=== PATIENT | female | born 2000 | race Asian ===

== ENCOUNTER 2024-08-08 22:31 | Emergency (ER) | payer OTHER ==
[~2024-08-08] VITALS: Ht 154.9 cm; Wt 46.2 kg
[2024-08-08 23:45] LABS: BASO % 0.5 % (0.0-1.0); EOS # 0.1 10^3/uL (0.0-0.5); EOS % 0.6 % (0.0-3.0); HEMATOCRIT 36.9 % (36.0-47.0); HEMOGLOBIN 13.3 g/dl (12.0-15.5); LYMPH # 2.4 10^3/uL (1.5-5.0); LYMPH % 28.7 % (24.0-44.0); MEAN CORPUSCULAR HEMOGLOBIN 30.7 pg (27.0-33.0); MEAN CORPUSCULAR VOLUME 85.2 fl (80.0-96.0); MONO # 0.5 10^3/uL (0.0-0.8); MONO % 6.1 % (2.0-8.0); NEUTROPHILS # 5.4 10^3/uL (1.5-8.5); NEUTROPHILS % 63.9 % (36.0-66.0); PLATELET COUNT, AUTOMATED 345 10^3/uL (150-450); RED BLOOD COUNT 4.33 10^6/uL (4.00-5.40); WHITE BLOOD COUNT 8.4 10^3/uL (4.0-10.0)
[2024-08-09 00:09] LABS: LIPASE 29 U/L (12-53)
[2024-08-09 00:12] LABS: ALBUMIN 4.4 G/DL (3.2-5.2); ALKALINE PHOSPHATASE 57 U/L (46-116); ALT/SGPT 111 U/L (7.0-40); AST/SGOT 35 U/L (<34); BILIRUBIN,DIRECT 0.3 MG/DL (<0.4); BILIRUBIN,TOTAL 0.8 MG/DL (0.3-1.2); BLOOD UREA NITROGEN 9 MG/DL (9-23); CALCIUM LEVEL 10.4 MG/DL (8.5-10.1); CARBON DIOXIDE LEVEL 20 MMOL/L (20-31); CHLORIDE LEVEL 108 MMOL/L (98-107); CREATININE FOR GFR 0.48 MG/DL (0.55-1.30); GLOMERULAR FILTRATION RATE > 60.0 (>60); GLUCOSE, FASTING 93 MG/DL (60-100); POTASSIUM SERUM 3.4 MMOL/L (3.5-5.1); SODIUM LEVEL 139 MMOL/L (136-145); TOTAL PROTEIN 8.7 G/DL (5.7-8.2)
[2024-08-09 00:50] LABS: HCG, SERUM QUANTITATIVE 180986.3 MIU/ML (<4.2)
[2024-08-09 03:44] LABS: APPEARANCE, URINE HAZY (CLEAR); BACTERIA, URINE AUTO NEGATIVE (NEGATIVE); BILIRUBIN, URINE AUTO 1+ (NEGATIVE); BLOOD, URINE BLOOD NEGATIVE (NEGATIVE); COLOR, URINE AMBER (YELLOW); GLUCOSE, URINE (UA) AUTO NEGATIVE (NEGATIVE); KETONE, URINE AUTO 2+ mg/dL (NEGATIVE); LEUKOCYTE ESTERASE, URINE AUTO NEGATIVE (NEGATIVE); MUCUS, URINE LARGE (NEGATIVE); NITRITE, URINE AUTO NEGATIVE (NEGATIVE); PROTEIN, URINE AUTO 2+ mg/dL (NEGATIVE); RBC, URINE AUTO 5 /HPF (0-3); SPECIFIC GRAVITY URINE AUTO 1.031 (1.002-1.035); SQUAMOUS EPITHELIAL CELL UR AU 2 /HPF (0-6); WBC, URINE AUTO 13 /HPF (0-3)
[2024-08-09] MEDS: NS 1,000 ML IV ONE (04:15)
[2024-08-09] MEDS: ONDANSETRON 4MG 2ML VIAL IV ONE (04:33)
[2024-08-09 06:00] VITALS: TEMP 98
[2024-08-09] MEDS ORDERED: ONDA-282 PO (06:43)
[2024-08-09] MEDS ORDERED: PREN1CHW6 PO (06:43)
[2024-08-09 07:00] VITALS: BP 104/57; O2SAT 99
== END 2024-08-09 07:23 | disposition home or self-care (01) ==
LOC: M ED 22:31
DX: O21.1 Hyperemesis gravidarum with metabolic disturbance (principal); Z3A.10 10 weeks gestation of pregnancy; F17.200 Nicotine dependence, unspecified, uncomplicated; Z79.83 Long term (current) use of bisphosphonates; Z79.899 Other long term (current) drug therapy
CPT/HCPCS: 71045; 76801; 80048; 80076; 81001; 83690; 84702; 85025; 87086; 87486; 87581; 87633; 87798; 96361; 96374; 99284; J2405

== ENCOUNTER → 2024-09-25 | Outpatient (CLI) | payer OTHER ==
[~2024-09-25] MED LIST: ONDA-282 PO; PREN1CHW6 PO
== END ==
LOC: M PLALAB 15:30
PROVIDERS: ATTEND Nurse Practitioner Family
DX: Z34.02 Encounter for supervision of normal first pregnancy, second trimester (principal); Z3A.00 Weeks of gestation of pregnancy not specified

== ENCOUNTER → 2024-10-30 | Outpatient (CLI) | payer OTHER ==
[2024-10-30 19:50] LABS: HEMATOCRIT 31.4 % (36.0-47.0); HEMOGLOBIN 10.3 g/dl (12.0-15.5); MEAN CORPUSCULAR HEMOGLOBIN 30.8 pg (27.0-33.0); MEAN CORPUSCULAR HGB CONC 32.8 g/dl (32.0-36.5); PLATELET COUNT, AUTOMATED 269 10^3/uL (150-450); RED BLOOD COUNT 3.34 10^6/uL (4.00-5.40); WHITE BLOOD COUNT 10.5 10^3/uL (4.0-10.0)
[2024-10-30 20:57] LABS: HIV 1&2 SCREEN NEGATIVE (NEGATIVE)
[2024-10-30 21:06] LABS: HEPATITIS C VIRUS ABY INDEX 0.02 INDEX (<0.8)
== END ==
LOC: M PLALAB 16:01
PROVIDERS: ATTEND Nurse Practitioner Family
DX: Z34.02 Encounter for supervision of normal first pregnancy, second trimester (principal)

== ENCOUNTER → 2024-12-21 | Outpatient (CLI) | payer OTHER | LOC: M RAD 08:23 | PROVIDERS: ATTEND Nurse Practitioner Family | DX: Z34.03 Encounter for supervision of normal first pregnancy, third trimester (principal); Z3A.29 29 weeks gestation of pregnancy ==

== ENCOUNTER → 2024-12-25 | Outpatient (CLI) | payer OTHER ==
[2024-12-25 11:43] LABS: HEMATOCRIT 30.6 % (36.0-47.0); MEAN CORPUSCULAR HEMOGLOBIN 28.6 pg (27.0-33.0); MEAN CORPUSCULAR HGB CONC 32.7 g/dl (32.0-36.5); MEAN CORPUSCULAR VOLUME 87.4 fl (80.0-96.0); PLATELET COUNT, AUTOMATED 271 10^3/uL (150-450); WHITE BLOOD COUNT 9.4 10^3/uL (4.0-10.0)
[2024-12-25 12:10] LABS: GLUCOSE CHALLENGE TEST 1 HOUR 146 MG/DL (LESS THAN 140)
[2024-12-25 12:39] LABS: HIV 1&2 SCREEN NEGATIVE (NEGATIVE)
[2024-12-25 12:46] LABS: GC DNA AMPLIFICATION NEGATIVE (NEGATIVE)
[2024-12-25 12:47] LABS: HEPATITIS C VIRUS ABY INDEX 0.16 INDEX (<0.8)
== END ==
LOC: M PLALAB 07:34
PROVIDERS: ATTEND Specialist
DX: Z34.02 Encounter for supervision of normal first pregnancy, second trimester (principal)

== ENCOUNTER → 2024-12-31 | Outpatient (CLI) | payer OTHER | LOC: M LAB 08:08 | PROVIDERS: ATTEND Nurse Practitioner Family | DX: R73.02 Impaired glucose tolerance (oral) (principal) ==

== ENCOUNTER → 2025-01-19 | Outpatient (CLI) | payer OTHER | LOC: M RAD 06:49 | PROVIDERS: ATTEND Nurse Practitioner Family | DX: O24.410 Gestational diabetes mellitus in pregnancy, diet controlled (principal) ==

== ENCOUNTER → 2025-01-27 | Outpatient (CLI) | payer OTHER ==
[2025-01-27 11:30] LABS: HEMATOCRIT 36.7 % (36.0-47.0); MEAN CORPUSCULAR HEMOGLOBIN 29.1 pg (27.0-33.0); MEAN CORPUSCULAR HGB CONC 32.7 g/dl (32.0-36.5); MEAN CORPUSCULAR VOLUME 89.1 fl (80.0-96.0); PLATELET COUNT, AUTOMATED 257 10^3/uL (150-450); RED BLOOD COUNT 4.12 10^6/uL (4.00-5.40); WHITE BLOOD COUNT 9.1 10^3/uL (4.0-10.0)
== END ==
LOC: M PLALAB 07:41
PROVIDERS: ATTEND Nurse Practitioner Family
DX: D50.9 Iron deficiency anemia, unspecified (principal)

== ENCOUNTER 2025-02-02 03:59 | Emergency (ER) | payer OTHER ==
[2025-02-02] MEDS ORDERED: FERR325T3 PO (04:53)
== END 2025-02-02 04:00 | disposition admitted as inpatient to this hospital (09) ==
LOC: M ED 03:59
DX: Z53.21 Procedure and treatment not carried out due to patient leaving prior to being seen by health care provider (principal)

== ENCOUNTER 2025-02-02 04:08 | Inpatient (IN) | payer OTHER ==
[~2025-02-02] VITALS: Ht 154.9 cm; Wt 64.0 kg
[2025-02-02] VITALS (34 sets, daily range): BP systolic 100–158; BP diastolic 52–87; O2SAT 98–99
[2025-02-02] MEDS: ONDANSETRON 4MG 2ML VIAL IV ONE (04:35)
[2025-02-02] MEDS ORDERED: CARBOPROST TROMETHAMINE 250 MCG/ML AMP IM PRN (04:40)
[2025-02-02] MEDS ORDERED: LIDOCAINE 1% MDV 20ML VIAL INFIL PRN (04:40)
[2025-02-02] MEDS ORDERED: OXYTOCIN INJ 10UNITS/ML 1ML VIAL IM PRN (04:40)
[2025-02-02] MEDS ORDERED: METHYLERGONOVINE MALEATE 0.2MG/ML 1ML VIAL IM PRN (04:40)
[2025-02-02] MEDS ORDERED: TRANEXAMIC ACID INJection 1,000 MG in NS 100 ML IV PRN (04:40)
[2025-02-02] MEDS: PENICILLIN G POTASSIUM 5 MU IV 5 MU in DEXTROSE 5% (D5W) MINI-BAG PLU 100 ML IV STA (04:46)
[2025-02-02] MEDS: LACTATED RINGER'S 1000 ML IV STA (04:47)
[2025-02-02 04:53] LABS: HEMATOCRIT 37.3 % (36.0-47.0); HEMOGLOBIN 12.6 g/dl (12.0-15.5); MEAN CORPUSCULAR HEMOGLOBIN 29.1 pg (27.0-33.0); MEAN CORPUSCULAR HGB CONC 33.8 g/dl (32.0-36.5); MEAN CORPUSCULAR VOLUME 86.1 fl (80.0-96.0); PLATELET COUNT, AUTOMATED 241 10^3/uL (150-450); RED BLOOD COUNT 4.33 10^6/uL (4.00-5.40); WHITE BLOOD COUNT 7.4 10^3/uL (4.0-10.0)
[2025-02-02] MEDS ORDERED: FERR325T3 PO (04:53)
[2025-02-02] MEDS ORDERED: LR 500 ML IV PRN (05:10)
[2025-02-02] MEDS ORDERED: NALOXONE INJ 0.4MG/1ML VIAL IV PRN (05:10)
[2025-02-02] MEDS ORDERED: ONDANSETRON 4MG 2ML VIAL IV PRN (05:10)
[2025-02-02] MEDS ORDERED: EPIDURAL/PCA KEYS XX PRN (05:10)
[2025-02-02] MEDS ORDERED: diphenhydrAMINE 50MG/ML VIAL IV PRN (05:10)
[2025-02-02] MEDS ORDERED: ePHEDrine SULFATE 25 MG/5 ML(5MG/ML) SYRINGE IVP PRN (05:10)
[2025-02-02] MEDS: FENTANYL/ROPIVACAINE/NACL BAG 100 ML EPIDURAL SCH (05:28)
[2025-02-02] MEDS ORDERED: HOME MED LIST COMPLETE! XX SCH (05:50)
[2025-02-02 05:51] LABS: HIV 1&2 SCREEN NEGATIVE (NEGATIVE)
[2025-02-02] MEDS: BETAMETHASONE SOLUSPAN 6MG/ML 5ML VIAL IM ONE (05:58)
[2025-02-02 08:01] LABS: HEPATITIS C VIRUS ABY INDEX 0.05 INDEX (<0.8)
[2025-02-02] MEDS: PEN G POT 3,000,000 UNIT/50 ML 3,000,000 UNIT in IV 1 EA IV SCH (08:50)
[2025-02-02] MEDS ORDERED: OXYTOCIN INJ 10UNITS/ML 1ML VIAL IV ONE (09:30)
[2025-02-02] MEDS: OXYTOCIN INJ 10UNITS/ML 1ML VIAL IV ONE ×2 (10:30→11:21)
[2025-02-02] MEDS: OXYTOCIN DRIP 30 UNITS in IV 1 EA IV PRN (10:35)
[2025-02-02] MEDS ORDERED: METHYLERGONOVINE MALEATE 0.2 MG TAB PO PRN (11:40)
[2025-02-02] MEDS ORDERED: DOCUSATE SODIUM 100MG CAPSULE PO PRN (11:40)
[2025-02-02] MEDS ORDERED: ACETAMINOPHEN 325 MG TAB PO PRN (11:40)
[2025-02-02] MEDS: OXYTOCIN DRIP 30 UNITS in IV 1 EA IV SCH (11:40)
[2025-02-02] MEDS ORDERED: RHOGAM 300MCG (1500IU) INJ IM SCH (11:40)
[2025-02-02] MEDS ORDERED: DIBUCAINE 1% OINTMENT 30GM TOP PRN (11:40)
[2025-02-02 11:55] LABS: CORD GAS ABE A -9.7; CORD GAS HCO3 A 18.8 MMOL/L; CORD GAS O2 SAT A 84.7 %; CORD GAS PCO2 A 51.4 mmHg; CORD GAS PH A 7.18 UNITS; CORD GAS PO2 A 46.9 mmHg; CORD GAS SBC A 16.5 MMOL/L; CORD GAS TCO2 A 20.3 MMOL/L
[2025-02-02 11:58] LABS: CORD GAS ABE V -10.7; CORD GAS HCO3 V 15.7 MMOL/L; CORD GAS O2 SAT V 60.8 %; CORD GAS PCO2 V 36.5 mmHg; CORD GAS PH V 7.251 UNITS; CORD GAS PO2 V 26.1 mmHg; CORD GAS SBC V 15.4 MMOL/L; CORD GAS TCO2 V 16.8 MMOL/L
[2025-02-02] MEDS: IBUPROFEN 600MG TAB PO PRN (12:52)
[2025-02-02] MEDS: FLUZONE VACCINE TRIVALENT PF(2024-25) 0.5ML SYRINGE IM.IMMUN ONE (17:42)
[2025-02-02] MEDS: BOOSTRIX VACCINE (TETANUS/DIPHTH/ACEL. PERTUSSIS) 0.5ML SYR IM.IMMUN ONE (17:43)
[2025-02-02] MEDS: ACETAMINOPHEN 500 MG TAB PO PRN (20:17)
[2025-02-02] MEDS: IBUPROFEN 800 MG TAB PO PRN (20:17)
[2025-02-03 06:00] VITALS: BP 116/76; O2SAT 97
[2025-02-03 06:29] LABS: HEMATOCRIT 33.7 % (36.0-47.0); HEMOGLOBIN 11.1 g/dl (12.0-15.5); MEAN CORPUSCULAR HEMOGLOBIN 28.7 pg (27.0-33.0); MEAN CORPUSCULAR HGB CONC 32.9 g/dl (32.0-36.5); MEAN CORPUSCULAR VOLUME 87.1 fl (80.0-96.0); PLATELET COUNT, AUTOMATED 223 10^3/uL (150-450); RED BLOOD COUNT 3.87 10^6/uL (4.00-5.40); WHITE BLOOD COUNT 11.8 10^3/uL (4.0-10.0)
[2025-02-03] MEDS: PRENATAL VITAMINS CHEWABLE TABLET PO SCH (07:55)
[2025-02-03] MEDS ORDERED: OXYTOCIN INJ 10UNITS/ML 1ML VIAL IV STA (11:42)
[2025-02-03 18:00] VITALS: BP 117/76; O2SAT 96
[2025-02-04 06:00] VITALS: BP 124/70; O2SAT 98
[2025-02-04] MEDS: MEASLES,MUMPS,RUBELLA VACCINE INJ (MMR-II) SC.IMMUN ONE (09:00)
== END 2025-02-04 13:55 | disposition home or self-care (01) | DRG 807 ==
LOC: M LDO 04:08 → M LDI 04:24 → M OBS 13:21
PROVIDERS: ADMIT Advanced Practice Midwife; ATTEND Advanced Practice Midwife
PROC: 10E0XZZ Delivery of Products of Conception, External Approach (ICD-10-PCS; principal; 2025-02-02)
DX: O60.14X0 Preterm labor third trimester with preterm delivery third trimester, not applicable or unspecified (principal); Z37.0 Single live birth; Z3A.35 35 weeks gestation of pregnancy; O24.410 Gestational diabetes mellitus in pregnancy, diet controlled; D64.9 Anemia, unspecified; O99.02 Anemia complicating childbirth; O42.013 Preterm premature rupture of membranes, onset of labor within 24 hours of rupture, third trimester